=== PATIENT | male | born 1945 | race Caucasian/White ===

== ENCOUNTER 2022-05-30 18:15 | Emergency (ER) | payer OTHER ==
[2022-05-30 18:34] VITALS: BP 149/73; PULSE 53; RESP 20; TEMP 98.6; BMI 20.3
[2022-05-30 19:29] LABS: HEMATOCRIT 39.7 % (35.4-49); MCH 33.5 pg (25.7-33.7); MCHC 35.1 g/dl (32.0-35.9); MEAN CELL VOLUME 95.3 fl (80-96); MEAN PLT VOLUME 8.3 fl (7.5-11.1); PLATELET COUNT 185.6 10^3/uL (134-434); RBC 4.17 10^6/uL (4.00-5.60); RDW 13.9 % (11.9-15.9)
[2022-05-30 19:43] LABS: ALBUMIN 3.5 g/dl (3.4-5.0); BILIRUBIN,TOTAL 0.7 mg/dl (0.2-1); CALCIUM 8.9 mg/dl (8.5-10); CREATININE 0.7 mg/dl (0.55-1.3); TOT PROT 5.7 g/dl (6.4-8.2)
[2022-05-30 21:13] LABS: PLATELET ESTIMATE ADEQUATE
== END 2022-05-30 21:41 | disposition home or self-care (01) ==
LOC: FER 18:15
DX: R07.89 Other chest pain (principal)
CPT/HCPCS: 36415; 71275-TC; 80053; 85025; 93005; 99284-25; Q9967

== ENCOUNTER 2022-06-20 09:47 | Emergency (ER) | payer OTHER ==
[2022-06-20 10:07] VITALS: BP 173/87; PULSE 61; RESP 18; TEMP 98.6; BMI 20.3
[2022-06-20] MEDS ORDERED: DIPHTH,PERTUSS(ACELL),TET 0.5 ML DISP.SYRIN IM ONE ×2 (10:14→10:17)
[2022-06-20] MEDS ORDERED: ACETAMINOPHEN 325 MG TABLET (FP) PO ONE (10:14)
[2022-06-20] MEDS ORDERED: ACETAMINOPHEN 325 MG TABLET (FP) ONE (10:17)
[2022-06-20] MEDS ORDERED: LIDOCAINE HCL 2% (50ML VIAL) INF ONE (11:36)
[2022-06-20] MEDS ORDERED: LIDOCAINE HCL 2% (20ML MULTI-DOSE VIAL) ONE (11:38)
== END 2022-06-20 12:27 | disposition home or self-care (01) ==
LOC: FER 09:47
PROC: 0HQEXZZ Repair Left Lower Arm Skin, External Approach (ICD-10-PCS; principal; 2022-06-20)
PROC: 3E0234Z Introduction of Serum, Toxoid and Vaccine into Muscle, Percutaneous Approach (ICD-10-PCS; 2022-06-20)
DX: S51.812A Laceration without foreign body of left forearm, initial encounter (principal); W22.8XXA Striking against or struck by other objects, initial encounter
CPT/HCPCS: 12002-25; 73030-TC-LT-FY; 73060-TC-LT-FY; 73070-TC-LT-FY; 90471; 90715; 99284-25

== ENCOUNTER 2022-06-28 14:49 | Emergency (ER) | payer OTHER ==
[2022-06-28 15:10] VITALS: BP 141/71; PULSE 79; RESP 20; TEMP 98.2; BMI 20.9
[2022-06-28] MEDS ORDERED: CLINDAMYCIN HCL 150 MG CAPSULE (FP) PO ONE (15:35)
[2022-06-28] MEDS ORDERED: CLINDAMYCIN HCL 150 MG CAPSULE (FP) ONE (15:44)
== END 2022-06-28 15:48 | disposition home or self-care (01) ==
LOC: FER 14:49
DX: Z48.00 Encounter for change or removal of nonsurgical wound dressing (principal)
CPT/HCPCS: 99281-25

== ENCOUNTER 2022-07-10 14:50 | Emergency (ER) | payer OTHER ==
[2022-07-10 15:08] VITALS: BP 150/78; PULSE 72; RESP 18; TEMP 98.3
== END 2022-07-10 15:24 | disposition home or self-care (01) ==
LOC: FER 14:50
DX: L03.114 Cellulitis of left upper limb (principal); Z48.02 Encounter for removal of sutures
CPT/HCPCS: 99281-25